=== PATIENT | male | born 1995 ===

== ENCOUNTER 2021-08-05 18:43 | Emergency (ER) | payer OTHER, SELFPAY ==
[2021-08-05 18:54] VITALS: BP 136/74; PULSE 69; RESP 16; TEMP 36.4; O2SAT 99
--- NOTE | 2021-08-05 19:02 | ED.SKABFB ---
HPI - Skin/Abscess/Foreign Bdy General Chief complaint: Wound/Laceration Stated complaint: Laceration on hand Time Seen by Provider: 08/05/21 18:45 Source: patient Mode of arrival: ambulatory Limitations: no limitations History of Present Illness HPI narrative: 25-year-old male presents to [facility] complaints of laceration to his left second finger which occurred at 11 AM today. Patient reports that he cut his finger while using a knife at work. Patient is unsure of his last tetanus shot. Patient denies decreased range of motion, numbness, tingling or heavy bleeding. MD complaint: laceration Onset (ago): hour(s) (8) Tetanus up to date: no Location: L hand (left 2nd finger ) Exacerbating factors: none Context: none Associated symptoms: denies other symptoms Treatments prior to arrival: bandages Related Data Home Medications Medication Instructions Recorded Confirmed No Home Medications 08/05/21 08/05/21 Allergies Allergy/AdvReac Type Severity Reaction Status Date / Time Penicillins Allergy Unknown Other Verified 08/05/21 18:48 Review of Systems Constitutional: Constitutional: Denies chills, Denies fatigue, Denies fever(s) and Denies weakness ENT: Denies sore throat Cardiovascular: Cardiovascular: Denies chest pain, Denies rapid heart rate, Denies radiating jaw, neck or arm pain and Denies slow heart rate Respiratory: Respiratory: Denies cough and Denies dyspnea Gastrointestinal: Gastrointestinal: Denies abdominal pain, Denies diarrhea, Denies nausea and Denies vomiting Integumentary/Breasts: Comments: Laceration to left second finger Neurologic: Denies dizziness PMFSH Family History Family History Mother Family history of mental disorder Social History Social History Smoking status: Never smoker Comments At time of signature, I agree with nursing past medical, surgical, social and family history. There is no relevant family history pertinent to the presenting complaint. Exam Const: General: no acute distress Nutritional Appearance: well nourished Orientation/consciousness: patient oriented x3 Neck: Neck: normal visual inspection Resp: Effort & Inspection: normal respiratory effort, not labored and not tachypneic Auscultation: clear to auscultation bilaterally Cardio: Rate: regular rate Rhythm: regular rhythm Skin: General skin exam: normal color Rashes: no rashes Other: 1 cm linear gaping laceration noted to PIP joint of left second finger. There is no bleeding noted. There is no bruising, swelling, erythema noted. There is full range of motion to finger. Pulses are within normal limits Neuro: General: patient oriented x3 and moves all extremities Speech: normal speech Extrem: General: no pedal edema Course Course Level of Care: Express Care Visit Vital Signs Vital signs: Vital Signs Temperature 36.4 C 08/05/21 18:54 Pulse Rate 69 08/05/21 18:54 Respiratory Rate 16 08/05/21 18:54 Blood Pressure 136/74 08/05/21 18:54 Pulse Oximetry 99 08/05/21 18:54 Temperature 36.4 C 08/05/21 18:54 Pulse Rate 69 08/05/21 18:54 Respiratory Rate 16 08/05/21 18:54 Blood Pressure 136/74 08/05/21 18:54 Pulse Oximetry 99 08/05/21 18:54 Procedures Laceration Laceration 1: Date: 08/05/21 Time: 19:22 Site: other (left 2nd finger -- PCP joint ) Side (If applicable): left Size (cm): 1 Description: linear Depth: simple, single layer Local Anesthetic: lidocaine 1% Amount of anesthesia used (mL): 2 Pre-repair: wound explored ====== Skin Level ====== Skin layer closed with: nylon Size (cm): 5-0 Number of sutures: 5 Technique: simple, interrupted ====== Subcutaneous Layer ====== ====== Muscle Layer ====== ====== Tendon Layer ======
[2021-08-05] MEDS: TETANUS,DIPHTHERIA,AC PERTUSSIS ADULT (0.5 ML) BOOSTRIX IM (19:03)
[2021-08-05] MEDS: LIDOCAINE HCL 1% LOCAL INJ 20 ML VIAL 5 ML INFILTRATE (19:04)
== END 2021-08-05 19:31 | disposition home or self-care (01) ==
PROVIDERS: Emergency Provider Nurse Practitioner Family
DX: S61.211A Laceration without foreign body of left index finger without damage to nail, initial encounter (principal); W26.0XXA Contact with knife, initial encounter; Y99.0 Civilian activity done for income or pay; Z23 Encounter for immunization
CPT/HCPCS: 12001; 90471; 90715; 99212; G0463

== ENCOUNTER 2021-08-16 09:17 | Emergency (ER) | payer OTHER, SELFPAY ==
[2021-08-16 09:28] VITALS: BP 117/72; PULSE 82; RESP 16; TEMP 37.2; O2SAT 99
--- NOTE | 2021-08-16 10:28 | ED.WOUNDLAC ---
HPI - Wound/Laceration General Chief Complaint: Skin/Abscess/Foreign Body Stated Complaint: stitches removal Time Seen by Provider: 08/16/21 10:17 Source: patient and RN notes reviewed Mode of arrival: ambulatory Limitations: no limitations History of Present Illness HPI narrative: Patient presents today requesting suture removal from his left second finger. Sutures were placed on 08/05/2021. Denies any difficulties with the sutures or any signs of infection. Denies pain. Related Data Home Medications Medication Instructions Recorded Confirmed No Home Medications 08/05/21 08/16/21 Allergies Allergy/AdvReac Type Severity Reaction Status Date / Time Penicillins Allergy Unknown Other Verified 08/16/21 10:17 Review of Systems Review of Systems: CONSTITUTIONAL: Denies body aches, fever, chills, or sweats. EYES: Denies visual changes, redness, or discharge. ENT: Denies rhinorrhea, congestion, sore throat, or otalgia. CARDIOVASCULAR: Denies chest pain, palpitations, or edema. RESPIRATORY: Denies cough or dyspnea. GASTROINTESTINAL: Denies abdominal pain, nausea, vomiting, or diarrhea. GENITOURINARY: Denies dysuria or hematuria. SKIN: Denies rash, itching. + Sutured wound to left second finger. MUSCULOSKELETAL: Denies back pain, joint pain, or myalgia. NEUROLOGIC: Denies headache, numbness, tingling, or weakness. PSYCH: Denies depression or anxiety. [facility] Family History Family History Mother Family history of mental disorder Social History Social History Smoking status: Never smoker Comments At time of signature, I have reviewed and agree with nursing past medical, surgical, social and family history unless otherwise noted. Please see nursing chart for further information. There is no relevant family history pertinent to the presenting complaint Exam Narrative: GENERAL: Well-appearing, well-nourished, and in no acute distress. HEAD: Normocephalic, atraumatic. EYES: EOMI. No redness or drainage. Conjunctivae normal. ENT: Mucous membranes pink and moist. NECK: Normal AROM. CHEST: No respiratory distress. EXTREMITIES: Normal range of motion. No edema. SKIN: Warm, dry, no rash. Capillary refill normal. Normal skin turgor. 5 intact sutures to base of left second finger, volar aspect. No signs of infection. NEURO: No focal deficits. Alert and oriented x3. Gait steady. PSYCH: Normal affect. No signs of depression or anxiety. Course Course Level of Care: Express Care Visit Vital Signs Vital signs: Vital Signs Temperature 98.9 F 08/16/21 09:28 Pulse Rate 82 08/16/21 09:28 Respiratory Rate 16 08/16/21 09:28 Blood Pressure 117/72 08/16/21 09:28 Pulse Oximetry 99 08/16/21 09:28 Temperature 98.9 F 08/16/21 09:28 Pulse Rate 82 08/16/21 09:28 Respiratory Rate 16 08/16/21 09:28 Blood Pressure 117/72 08/16/21 09:28 Pulse Oximetry 99 08/16/21 09:28 Reviewed Procedures Other Procedure Procedure 1: Other Procedure: 5 intact sutures were removed from patient's healing laceration. Wound was still gaping a little bit 1 sutures were removed so 1 Steri-Strip was placed to loosely approximate the wound for a little bit longer. MDM - Wound/Laceration Differential Diagnosis Differential diagnosis: Likely laceration and other (Suture removal) Critical Care Time Critical Care Time Critical Care Time: No Discharge Plan Discharge Clinical Impression: Visit for suture removal Patient Disposition: Home, Self-Care Condition: Stable Instructions: Stitches Removal (ED) Additional Instructions: Your sutures have been removed and there is no sign of infection. The Steri-Strips will fall off on its own. Continue to monitor for any redness, swelling, increased pain or drainage, and see your doctor if you note any. Patient Language: Israeli
== END 2021-08-16 10:30 | disposition home or self-care (01) ==
PROVIDERS: Emergency Provider Nurse Practitioner
DX: S61.211D Laceration without foreign body of left index finger without damage to nail, subsequent encounter (principal); X58.XXXD Exposure to other specified factors, subsequent encounter
CPT/HCPCS: 99211; G0463

== ENCOUNTER 2021-09-12 11:41 | Emergency (ER) | payer OTHER, SELFPAY ==
[2021-09-12 11:50] VITALS: BP 120/69; PULSE 72; RESP 16; TEMP 36.8; O2SAT 99
--- NOTE | 2021-09-12 11:52 | ED.URI ---
HPI - URI/Sore Throat General Chief Complaint: Upper Respiratory Infection Stated Complaint: Sore Throat Time Seen by Provider: 09/12/21 11:52 Source: patient Mode of arrival: ambulatory Limitations: no limitations History of Present Illness HPI Narrative: 26-year-old male presents with complaint of sore throat, runny nose, mild cough for 3 to 4 days. Afebrile. Denies fatigue, chills, body aches. No nausea vomiting diarrhea. Reports that throat starts hurting in the afternoon and into the night. Is taking Benadryl and Advil to treat his symptoms. All systems reviewed and negative except as noted above. Related Data Home Medications Medication Instructions Recorded Confirmed No Home Medications 08/05/21 08/16/21 Allergies Allergy/AdvReac Type Severity Reaction Status Date / Time Penicillins Allergy Unknown Other Verified 08/16/21 10:17 Review of Systems Review of Systems: CONSTITUTIONAL: Denies fever, chills, or sweats. EYES: Denies visual changes, redness, or discharge. ENT: Reports rhinorrhea, congestion, sore throat. Denies otalgia. CARDIOVASCULAR: Denies chest pain, palpitations, or edema. RESPIRATORY: Reports cough. Denies dyspnea. GASTROINTESTINAL: Denies abdominal pain, nausea, vomiting, or diarrhea. GENITOURINARY: Denies dysuria or hematuria. SKIN: Denies rash or itching. MUSCULOSKELETAL: Denies back pain, joint pain, or myalgia. NEUROLOGIC: Denies headache, numbness, or weakness. PSYCHIATRIC: Denies anxiety or depression. All other systems reviewed are negative, except as documented in HPI. [facility] Family History Family History Mother Family history of mental disorder Social History Social History Smoking status: Never smoker Comments At time of signature, agree with nursing past medical, surgical, social and family history. There is no relevant family history pertinent to the presenting complaint. Exam Narrative: GENERAL: This is a well-nourished, well-developed patient, in no apparent distress. HEAD: normocephalic, atraumatic. EYES: PERRL. Sclera clear/white. Vision is grossly intact. EARS: External ears normal, auditory canals clear and without drainage, TMs normal without perforation. Hearing grossly intact. NOSE: External nose normal with clear postnasal drainage. No significant erythema or swelling to nares. THROAT: Mucous membranes moist, posterior pharynx nonerythematous. Clear postnasal drainage noted. NECK: Neck supple, non-tender without lymphadenopathy, masses or thyromegaly. CARDIOVASCULAR: Regular rate and rhythm without murmurs, gallops, or rubs. RESPIRATORY: Clear to auscultation. Breath sounds equal bilaterally. No wheezes, rales, or rhonchi. SKIN: warm, Dry, intact with no suspicious lesions or rash, good texture and turgor. NEURO: awake, alert, and oriented to person, place and time. There were no obvious focal neurologic abnormalities. EXTREMITIES: Normal range of motion to all extremities. Course Course Level of Care: Express Care Visit Vital Signs Vital signs: Vital Signs Temperature 36.8 C 09/12/21 11:50 Pulse Rate 72 09/12/21 11:50 Respiratory Rate 16 09/12/21 11:50 Blood Pressure 120/69 09/12/21 11:50 Pulse Oximetry 99 09/12/21 11:50 Temperature 36.8 C 09/12/21 11:50 Pulse Rate 72 09/12/21 11:50 Respiratory Rate 16 09/12/21 11:50 Blood Pressure 120/69 09/12/21 11:50 Pulse Oximetry 99 09/12/21 11:50 Reviewed MDM - URI/Sore Throat MDM Narrative Medical decision making narrative: Negative rapid strep. Patient is aware of diagnosis, understands and agrees to treatment plan. Anticipatory guidance given. Patient agrees to follow-up as directed and is aware of reasons to seek care at the emergency department. Portions of this record may have been created with voice recognition software Differential Di
== END 2021-09-12 12:20 | disposition home or self-care (01) ==
PROVIDERS: Emergency Provider Nurse Practitioner Family
DX: J06.9 Acute upper respiratory infection, unspecified (principal)
CPT/HCPCS: 87081; 87880; 99213; G0463